=== PATIENT | female | born 1960 | race Caucasian/White ===

== ENCOUNTER 2019-11-11 09:48 | Outpatient (CLI) | payer BC ==
--- NOTE | 2019-11-11 10:12 | RAD ---
EXAM: Chest 2 views: HISTORY: Preoperative radiograph COMPARISON: None. FINDINGS: There is a normal-sized cardiomediastinal silhouette. There is no evidence of consolidation, mass, or pleural effusion. The bones are unremarkable. IMPRESSION: No evidence of acute cardiopulmonary disease
== END 2019-11-11 09:49 | disposition home or self-care (01) ==
LOC: NAV RAD 09:48
PROVIDERS: ATTEND Family Medicine
DX: Z01.818 Encounter for other preprocedural examination (principal)
CPT/HCPCS: 71046